=== PATIENT | male | born 1980 | race Caucasian/White ===

== ENCOUNTER 2020-03-14 20:37 | Inpatient (IN) | payer OTHER ==
[2020-03-14 22:50] VITALS: BMI 28.5
--- NOTE | 2020-03-14 23:09 | HP ---
CIWA Score Nausea/Vomitin Muscle Tremors: 3 Anxiety: 4-Mod. Anxious/Guarded Agitation: 3 Paroxysmal Sweats: 3 Orientation: 1-Uncertain about Date Tacttile Disturbances: 0-None Auditory Disturbances: 0-None Visual Disturbances: 0-None Headache: 3-Moderate CIWA-Ar Total Score: 19 - Admission Criteria OASAS Guidelines: Admission for Medically Managed Detox: Requires at least one of the followin. CIWA greater than 12 2. Seizures within the past 24 hours 3. Delirium tremens within the past 24 hours 4. Hallucinations within the past 24 hours 5. Acute intervention needed for co occurring medical disorder 6. Acute intervention needed for co occurring psychiatric disorder 7. Severe withdrawal that cannot be handled at a lower level of care (continued vomiting, continued diarrhea, abnormal vital signs) requiring intravenous medication and/or fluids 8. Admitting History and Physical - Smoking History Smoking history: Current every day smoker Aproximately how many cigarettes per day: 10 Admission ROS [facility] Chief Complaint: Seeking admission to detox from alcohol, on Methadone maintenance therapy with [facility]. Allergies/Adverse Reactions: Allergies Allergy/AdvReac Type Severity Reaction Status Date / Time No Known Allergies Allergy Unverified 09/08/12 08:02 History of Present Illness: 39 years old male with 18 years of alcohol dependence is seeking admission to detox. His last detox at [facility] was for the period 09/07/2012-09/12/2012 and he reports that he last detoxed was at [facility]. He drinks 2 pints of Vodka daily. He has medical history of hypertension, denies psych. history and suicidal ideation at this time. He is unemployed, homeless and he is on parole for burglary until September 2022. 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 He is on Methadone 190mg tablet oral daily with [facility]. LDM was today, 03/14/2020. Dose is yet to be verified by the nurse Exam Limitations: No Limitations - Ebola screening Have you traveled outside of the country in the last 21 days: No Have you had contact with anyone from an Ebola affected area: No Have you been sick,other than usual withdrawal symptoms: No Do you have a fever: No - Review of Systems Constitutional: Chills, Night Sweats, Changes in sleep EENT: reports: No Symptoms Reported Respiratory: reports: No Symptoms reported Cardiac: reports: No Symptoms Reported GI: reports: Diarrhea (x 1), Nausea, Poor Fluid Intake, Abdominal cramping : reports: No Symptoms Reported Musculoskeletal: reports: Back Pain, Muscle Pain Integumentary: reports: Dryness, Flushing Neuro: reports: Tremors Endocrine: reports: No Symptoms Reported Hematology: reports: No Symptoms Reported Psychiatric: reports: Mood/Affect Appropiate, Anxious Other Systems: Reviewed and Negative Patient History - Patient Medical History Hx Anemia: No Hx Asthma: No Hx Chronic Obstructive Pulmonary Disease (COPD): No Hx Cancer: No Hx Cardiac Disorders: No Hx Congestive Heart Failure: No Hx Hypertension: Yes Hx Hypercholesterolemia: No Hx Seizures: No Hx Diabetes: No Hx Gastrointestinal Disorders: No Hx Liver Disease: No Hx Genitourinary Disorders: No Hx Sexually Transmitted Disorders: No Hx Renal Disease (ESRD): No Hx Thyroid Disease: No Hx Human Immunodeficiency Virus (HIV): No (Negative 2020) Hx Hepatitis C: No Hx Depression: No Hx Suicide Attempt: No (Denies suicidal ideation at this time) Hx Bipolar Disorder: No Hx Schizophrenia: No - Patient Surgical History Past Surgical History: No - PPD History Previous Implant?: Yes Documented Results: Negative w/o proof Date: 09/09/12 PPD to be Administered?: Yes - Reproductive History Patient is a Female of Child Bearing Age (11 -55 yrs old): No (Male) - Smoking Cessation Smoking history: Current every day smoker Have you smoked in the past 12 months: Yes Aproximately how many cigarettes per day: 10 Hx Chewing Tobacco Use: No Initiated information on smoking cessation: Yes 'Breaking Loose' booklet given: 03/14/20 - Substance & Tx. History Hx Alcohol Use: Yes Hx Substance Use: Yes Substance Use Type: Alcohol, Cocaine, Prescribed (Methadone 190mg tablet oral daily with [facility]. dose to be confirmed by the nurse) Hx Substance Use Treatment: Yes ([facility]) - Substances abused Alcohol Substance route: Oral Frequency: Daily Amount used: 2 pints Vodka Age of first use: 21 Date of last use: 03/14/20 Admission Physical Exam [facility] - Vital Signs Vital Signs: Vital Signs - 24 hr 03/14/20 22:49 Temperature 98.4 F Pulse Rate 68 Respiratory 18 Rate Blood Pressure 147/93 - Physical General Appearance: Yes: Moderate Distress, Tremorous, Sweating, Anxious HEENTM: Yes: Within Normal Limits Respiratory: Yes: Lungs Clear, Normal Breath Sounds, No Respiratory Distress Neck: Yes: Within Normal Limits Breast: Yes: Breast Exam Deferred Cardiology: Yes: Within Normal Limits Abdominal: Yes: Normal Bowel Sounds Genitourinary: Yes: Within Normal Limits Back: Yes: Normal Inspection Musculoskeletal: Yes: Within Normal Limits Extremities: Yes: Tremors Neurological: Yes: Within Normal Limits Integumentary: Yes: Warm Lymphatic: Yes: Within Normal Limits - Diagnostic (1) Alcohol dependence with withdrawal, uncomplicated Current Visit: Yes Status: Acute (2) Hypertension Current Visit: Yes Status: Chronic Qualifiers: Hypertension type: essential hypertension Qualified Code(s): I10 - Esse ntial (primary) hypertension (3) Cocaine dependence Current Visit: Yes Status: Chronic Qualifiers: Substance use status: in withdrawal Qualified Code(s): F14.23 - Cocaine dependence with withdrawal (4) Methadone maintenance therapy patient Current Visit: Yes Status: Chronic (5) Nicotine dependence Current Visit: Yes Status: Acute Qualifiers: Nicotine product type: cigarettes Substance use status: in withdrawal Qualified Code(s): F17.213 - Nicotine dependence, cigarettes, with withdrawal Cleared for Admission S - Detox or Rehab [facility] Level of Care: Medically Managed Detox Regimen/Protocol: Librium Claeared for Rehab Admission: No Breathalyzer - Breathalyzer Breathalyzer: 0 Urine Drug Screen - Test Device Lot number: [id number] Expiration date: 11/02/21 - Control Is test valid?: Yes - Results Drug screen NEGATIVE: No Urine drug screen results: THC-Marijuana, FEN-Fentanyl, MOP-Opiates, MTD- Methadone Inpatient Rehab Admission - Rehab Decision to Admit Inpatient rehab admission?: No
[2020-03-14] MEDS ORDERED: NICOTINE POLACRILEX 2 MG GUM BUC PRN (23:31)
[2020-03-14] MEDS ORDERED: ONDANSETRON *ODT* 4 MG TABLET SL ONE (23:31)
[2020-03-14] MEDS ORDERED: MAG HYDROX/AL HYDROX/SIMETH 30 ML UNIT-DOSE CUP PO PRN (23:31)
[2020-03-14] MEDS ORDERED: IBUPROFEN 400 MG TABLET (FP) PO PRN (23:31)
[2020-03-14] MEDS ORDERED: BISMUTH SUBSALICYLATE 524 MG/30 ML UD PO PRN (23:31)
[2020-03-14] MEDS ORDERED: MENTHOL/PHENOL 1 EACH UD MM PRN (23:31)
[2020-03-14] MEDS ORDERED: MAGNESIUM CITRATE 300 ML BOTTLE PO PRN (23:31)
[2020-03-14] MEDS ORDERED: METHOCARBAMOL 500 MG TABLET PO PRN (23:31)
[2020-03-14] MEDS ORDERED: ACETAMINOPHEN 325 MG TABLET (FP) PO PRN ×2 (23:31)
[2020-03-14] MEDS ORDERED: MAGNESIUM HYDROX 2400MG/30ML ORAL SUSPENSION 30 ML CUP PO PRN (23:31)
[2020-03-14] MEDS ORDERED: chlordiazePOXIDE HCL 25 MG CAPSULE PO PRN (23:36)
[2020-03-15] MEDS: chlordiazePOXIDE HCL 25 MG CAPSULE PO SCH ×5 (02:34→22:42)
--- NOTE | 2020-03-15 09:24 | EKG ---
Test Reason : Blood Pressure : / mmHG Vent. Rate : 070 BPM Atrial Rate : 070 BPM P-R Int : 130 ms QRS Dur : 096 ms QT Int : 408 ms P-R-T Axes : 012 071 059 degrees QTc Int : 440 ms NORMAL SINUS RHYTHM NORMAL ECG NO PREVIOUS ECGS AVAILABLE Confirmed by Thiago Dillon MD ([id number]) on 03/15/2020 9:23:36 AM Referred By: ABIGAL Confirmed By:Thiago Dillon MD
[2020-03-15] MEDS ORDERED: METHADONE HCL 10 MG TABLET PO ONE ×2 (09:54→13:06)
--- NOTE | 2020-03-15 10:03 | PN ---
S CIWA - CIWA Score Nausea/Vomitin-No Nausea/No Vomiting Muscle Tremors: 3 Anxiety: 3 Agitation: 3 Paroxysmal Sweats: 3 Orientation: 0-Oriented Tacttile Disturbances: 0-None Auditory Disturbances: 0-None Visual Disturbances: 0-None Headache: 0-None Present CIWA-Ar Total Score: 12 [facility] Progress Note (SOAP) Subjective: sweats tired shakes irritable Objective: 03/15/20 10:19 Vital Signs - 24 hr 03/15/20 03/15/20 03/15/20 12:55 17:25 21:12 Temperature 97.3 F L 98.1 F 97.1 F L Pulse Rate 74 70 64 Respiratory 18 18 16 Rate Blood Pressure 154/88 141/74 133/74 O2 Sat by Pulse 97 96 Oximetry (%) 03/16/20 05:32 Temperature 96.8 F L Pulse Rate 64 Respiratory 18 Rate Blood Pressure 141/92 O2 Sat by Pulse 97 Oximetry (%) Laboratory Tests 03/14/20 03/15/20 03/15/20 08:30 08:30 08:30 WBC 4.8 RBC 4.36 Hgb 13.6 Hct 41.0 MCV 93.9 MCH 31.3 MCHC 33.3 RDW 15.2 D Plt Count 303 D MPV 8.0 Sodium Potassium Chloride Carbon Dioxide Anion Gap BUN Creatinine Est GFR (CKD-EPI)AfAm Est GFR (CKD-EPI)NonAf Random Glucose Calcium Total Bilirubin AST ALT Alkaline Phosphatase Total Protein Albumin Syphilis Serology Non-reactive COVID-19 ([facility]) Not detected 03/15/20 08:30 WBC RBC Hgb Hct MCV MCH MCHC RDW Plt Count MPV Sodium 144 Potassium 4.0 Chloride 107 Carbon Dioxide 31 Anion Gap 6 L BUN 18.6 H Creatinine 1.0 Est GFR (CKD-EPI)AfAm 109.40 Est GFR (CKD-EPI)NonAf 94.39 Random Glucose 119 H Calcium 8.6 Total Bilirubin 0.4 AST 20 ALT 26 Alkaline Phosphatase 57 Total Protein 5.7 L Albumin 3.0 L Syphilis Serology COVID-19 ([facility]) aaox3 ambulating no acute distress Assessment: 03/16/20 10:20 withdrawals Plan: continue detox
[2020-03-15] MEDS ORDERED: METHADONE HCL 10 MG TABLET ONE ×2 (10:13→13:12)
[2020-03-15] MEDS ORDERED: METHADONE HCL 40 MG DISPERSABLE TABLET ONE ×2 (10:13→13:13)
[2020-03-15] MEDS ORDERED: METHADONE 80 MG, METHADONE 10 MG PO ONE ×2 (10:15→13:30)
[2020-03-15] MEDS: NICOTINE 14 MG/24 HOURS TOPICAL PATCH TD SCH (12:14)
[2020-03-15] MEDS: PRENATAL VITAMINS W/ FOLIC ACID TABLET (FP) PO SCH (12:14)
[2020-03-15 12:24] LABS: BILIRUBIN,TOTAL 0.4 mg/dL (0.2-1); BLOOD UREA NITROGEN 18.6 mg/dL (7-18); CALCIUM 8.6 mg/dL (8.5-10.1); HEMOGLOBIN 13.6 GM/dL (11.7-16.9); MCH 31.3 pg (25.7-33.7); MCHC 33.3 g/dl (32.0-35.9); MEAN CELL VOLUME 93.9 fl (80-96); PLATELET COUNT 303 K/MM3 (134-434); RBC 4.36 M/mm3 (4.00-5.60); RDW 15.2 % (11.9-15.9); TOT PROT 5.7 g/dl (6.4-8.2); WHITE BLOOD COUNT 4.8 K/mm3 (4.0-10.0)
[2020-03-15] MEDS: THIAMINE HCL 100 MG TABLET (FP) PO SCH (22:43)
[2020-03-15] MEDS: MELATONIN 5 MG TABLETS PO SCH (23:00)
[2020-03-16] MEDS ORDERED: METHADONE HCL 10 MG TABLET ONE (04:32)
[2020-03-16] MEDS ORDERED: METHADONE HCL 40 MG DISPERSABLE TABLET ONE (04:32)
[2020-03-16] MEDS ORDERED: METHADONE HCL 40 MG DISPERSABLE TABLET PO SCH (06:00)
[2020-03-16] MEDS: chlordiazePOXIDE HCL 25 MG CAPSULE PO SCH ×4 (06:55→23:02)
[2020-03-16] MEDS: METHADONE 80 MG, METHADONE 10 MG PO SCH (06:55)
--- NOTE | 2020-03-16 10:22 | PN ---
[facility] CIWA - CIWA Score Nausea/Vomitin-No Nausea/No Vomiting Muscle Tremors: 2 Anxiety: 2 Agitation: 1-Slight > Activity Paroxysmal Sweats: 1-Minimal Palms Moist Orientation: 0-Oriented Tacttile Disturbances: 0-None Auditory Disturbances: 0-None Visual Disturbances: 0-None Headache: 0-None Present CIWA-Ar Total Score: 6 [facility] Progress Note (SOAP) Subjective: sleepy sweats Objective: 03/16/20 10:21 Vital Signs Temperature 96.8 F L 03/16/20 05:32 Pulse Rate 64 03/16/20 05:32 Respiratory Rate 18 03/16/20 05:32 Blood Pressure 141/92 03/16/20 05:32 O2 Sat by Pulse Oximetry (%) 97 03/16/20 05:32 Laboratory Tests 03/14/20 03/15/20 03/15/20 08:30 08:30 08:30 WBC 4.8 RBC 4.36 Hgb 13.6 Hct 41.0 MCV 93.9 MCH 31.3 MCHC 33.3 RDW 15.2 D Plt Count 303 D MPV 8.0 Sodium Potassium Chloride Carbon Dioxide Anion Gap BUN Creatinine Est GFR (CKD-EPI)AfAm Est GFR (CKD-EPI)NonAf Random Glucose Calcium Total Bilirubin AST ALT Alkaline Phosphatase Total Protein Albumin Syphilis Serology Non-reactive COVID-19 ([facility]) Not detected 03/15/20 08:30 WBC RBC Hgb Hct MCV MCH MCHC RDW Plt Count MPV Sodium 144 Potassium 4.0 Chloride 107 Carbon Dioxide 31 Anion Gap 6 L BUN 18.6 H Creatinine 1.0 Est GFR (CKD-EPI)AfAm 109.40 Est GFR (CKD-EPI)NonAf 94.39 Random Glucose 119 H Calcium 8.6 Total Bilirubin 0.4 AST 20 ALT 26 Alkaline Phosphatase 57 Total Protein 5.7 L Albumin 3.0 L Syphilis Serology COVID-19 ([facility]) aaox3 lying in bed no acute distress elevated BUN; encouraged water intake Assessment: 03/16/20 10:21 withdrawals Plan: continue detox increase fluids
[2020-03-16] MEDS: PRENATAL VITAMINS W/ FOLIC ACID TABLET (FP) PO SCH (12:34)
[2020-03-16] MEDS: NICOTINE 14 MG/24 HOURS TOPICAL PATCH TD SCH (12:34)
[2020-03-16] MEDS: THIAMINE HCL 100 MG TABLET (FP) PO SCH (23:03)
[2020-03-16] MEDS: MELATONIN 5 MG TABLETS PO SCH (23:03)
[2020-03-17] MEDS ORDERED: chlordiazePOXIDE HCL 10 MG CAPSULE PO PRN
[2020-03-17] MEDS ORDERED: METHADONE HCL 10 MG TABLET ONE (03:50)
[2020-03-17] MEDS ORDERED: METHADONE HCL 40 MG DISPERSABLE TABLET ONE (03:50)
[2020-03-17] MEDS: chlordiazePOXIDE HCL 10 MG CAPSULE PO SCH ×2 (07:56→10:48)
[2020-03-17] MEDS: PRENATAL VITAMINS W/ FOLIC ACID TABLET (FP) PO SCH (10:46)
[2020-03-17] MEDS: NICOTINE 14 MG/24 HOURS TOPICAL PATCH TD SCH (10:47)
[2020-03-17] MEDS: METHADONE 80 MG, METHADONE 10 MG PO SCH (10:47)
--- NOTE | 2020-03-17 11:21 | DS ---
[facility] Detox Discharge Summary Admission Date: 03/15/20 Discharge Date: 03/17/20 - History Present History: Alcohol Dependence, Opioid Dependence Pertinent Past History: Pt states he wants to leave today. Says he does not need librium- feeling fine with the detox meds he has had so far. PE- alert and oriented, no evidence of withdrawal pt states will follow up with [facility] where he gets his methadone and is in an outpatient program Vital Signs - 24 hr 03/16/20 03/16/20 03/17/20 12:58 17:03 06:08 Temperature 97.1 F L 97.3 F L 97.3 F L Pulse Rate 68 60 61 Respiratory 18 18 18 Rate Blood Pressure 143/79 113/72 142/91 O2 Sat by Pulse 96 96 Oximetry (%) Laboratory Tests 03/14/20 03/15/20 03/15/20 08:30 08:30 08:30 WBC 4.8 RBC 4.36 Hgb 13.6 Hct 41.0 MCV 93.9 MCH 31.3 MCHC 33.3 RDW 15.2 D Plt Count 303 D MPV 8.0 Sodium Potassium Chloride Carbon Dioxide Anion Gap BUN Creatinine Est GFR (CKD-EPI)AfAm Est GFR (CKD-EPI)NonAf Random Glucose Calcium Total Bilirubin AST ALT Alkaline Phosphatase Total Protein Albumin Syphilis Serology Non-reactive COVID-19 ([facility]) Not detected 03/15/20 08:30 WBC RBC Hgb Hct MCV MCH MCHC RDW Plt Count MPV Sodium 144 Potassium 4.0 Chloride 107 Carbon Dioxide 31 Anion Gap 6 L BUN 18.6 H Creatinine 1.0 Est GFR (CKD-EPI)AfAm 109.40 Est GFR (CKD-EPI)NonAf 94.39 Random Glucose 119 H Calcium 8.6 Total Bilirubin 0.4 AST 20 ALT 26 Alkaline Phosphatase 57 Total Protein 5.7 L Albumin 3.0 L Syphilis Serology COVID-19 ([facility]) - Physical Exam Results Vital Signs: Vital Signs Temperature 97.3 F L 03/17/20 06:08 Pulse Rate 61 03/17/20 06:08 Respiratory Rate 18 03/17/20 06:08 Blood Pressure 142/91 03/17/20 06:08 O2 Sat by Pulse Oximetry (%) 96 03/17/20 06:08 - Treatment Hospital Course: Detox Protocol Followed, Detoxed Safely, Responded well - Medication Discharge Medications: Ambulatory Orders NK [No Known Home Medication] 03/15/20
[2020-03-17 12:13] VITALS: BP 154/90; PULSE 65; TEMP 98
[2020-03-18] MEDS ORDERED: chlordiazePOXIDE HCL 10 MG CAPSULE PO SCH (05:00)
[2020-03-19] MEDS ORDERED: chlordiazePOXIDE HCL 10 MG CAPSULE PO ONE (05:00)
== END 2020-03-17 12:23 | disposition home or self-care (01) | DRG 773 ==
LOC: YASAS 20:37 → Y6N 03-15 00:02
PROVIDERS: ADMIT Allergy & Immunology; ATTEND Allergy & Immunology
PROC: HZ2ZZZZ Detoxification Services for Substance Abuse Treatment (ICD-10-PCS; principal; 2020-03-15)
DX: F10.230 Alcohol dependence with withdrawal, uncomplicated (principal); F11.20 Opioid dependence, uncomplicated; F14.20 Cocaine dependence, uncomplicated; F17.213 Nicotine dependence, cigarettes, with withdrawal; I10 Essential (primary) hypertension
CPT/HCPCS: 36415; 80053; 85027; 86780; 93005; 93010; Q0162; U0003

== ENCOUNTER 2021-05-31 14:44 | Inpatient (IN) | payer OTHER ==
[2021-05-31] MEDS ORDERED: IBUPROFEN 400 MG TABLET (FP) PO PRN (15:44)
[2021-05-31] MEDS ORDERED: MAGNESIUM HYDROX 2400MG/30ML ORAL SUSPENSION 30 ML CUP PO PRN (15:44)
[2021-05-31] MEDS ORDERED: MAG HYDROX/AL HYDROX/SIMETH 30 ML UNIT-DOSE CUP PO PRN (15:44)
[2021-05-31] MEDS ORDERED: diazePAM 5 MG TABLET PO PRN (15:44)
[2021-05-31] MEDS ORDERED: ACETAMINOPHEN 325 MG TABLET (FP) PO PRN ×2 (15:44)
[2021-05-31] MEDS ORDERED: MAGNESIUM CITRATE 300 ML BOTTLE PO PRN (15:44)
[2021-05-31] MEDS ORDERED: MENTHOL/PHENOL 1 EACH UD MM PRN (15:44)
[2021-05-31] MEDS ORDERED: METHOCARBAMOL 500 MG TABLET PO PRN (15:44)
[2021-05-31] MEDS ORDERED: ONDANSETRON *ODT* 4 MG TABLET SL PRN (15:44)
[2021-05-31] MEDS ORDERED: BISMUTH SUBSALICYLATE 524 MG/30 ML PO PRN (15:44)
[2021-05-31 16:59] VITALS: BMI 29.7
[2021-05-31] MEDS: PRENATAL VITAMINS W/ FOLIC ACID TABLET (FP) PO SCH (19:34)
[2021-05-31] MEDS: hydrOXYzine PAMOATE 25 MG CAPSULE (FP) PO SCH ×2 (19:34→22:55)
[2021-05-31] MEDS: NICOTINE 10 MG CARTRIDGE (INHALER) IH PRN (19:34)
[2021-05-31] MEDS: diazePAM 5 MG TABLET PO SCH ×2 (19:34→22:55)
[2021-05-31] MEDS: NICOTINE 14 MG/24 HOURS TOPICAL PATCH TD SCH (19:37)
[2021-05-31] MEDS: THIAMINE HCL 100 MG TABLET (FP) PO SCH (22:55)
[2021-05-31] MEDS: MELATONIN 5 MG TABLETS PO SCH (22:55)
[2021-06-01] MEDS: diazePAM 5 MG TABLET PO SCH ×4 (08:39→22:26)
[2021-06-01] MEDS: hydrOXYzine PAMOATE 25 MG CAPSULE (FP) PO SCH ×5 (08:39→22:26)
[2021-06-01 10:40] LABS: HEMATOCRIT 37.7 % (35.4-49); HEMOGLOBIN 12.9 GM/dL (11.7-16.9); MCH 31.2 pg (25.7-33.7); MCHC 34.3 g/dl (32.0-35.9); MEAN PLT VOLUME 8.2 fl (7.5-11.1); PLATELET COUNT 248 10^3/uL (134-434); RBC 4.15 M/mm3 (4.00-5.60); RDW 14.7 % (11.9-15.9); WHITE BLOOD COUNT 5.7 K/mm3 (4.0-10.0)
[2021-06-01 11:10] LABS: CALCIUM 8.4 mg/dL (8.5-10.1)
[2021-06-01 11:14] LABS: CREATININE 0.8 mg/dL (0.55-1.3)
[2021-06-01 11:15] LABS: BILIRUBIN,TOTAL 0.5 mg/dL (0.2-1); TOT PROT 5.7 g/dl (6.4-8.2)
[2021-06-01 11:19] LABS: BLOOD UREA NITROGEN 18.2 mg/dL (7-18)
[2021-06-01] MEDS: NICOTINE 14 MG/24 HOURS TOPICAL PATCH TD SCH (11:25)
[2021-06-01] MEDS: PRENATAL VITAMINS W/ FOLIC ACID TABLET (FP) PO SCH (11:26)
[2021-06-01] MEDS ORDERED: ALBUTEROL SO4 HFA INHALER IH PRN (11:34)
[2021-06-01] MEDS: methaDONE HCL 40 MG DISPERSABLE TABLET PO SCH (12:08)
[2021-06-01 13:09] LABS: HIV INTERPRETATION NEGATIVE (NEGATIVE)
[2021-06-01] MEDS: MELATONIN 5 MG TABLETS PO SCH (22:27)
[2021-06-01] MEDS: THIAMINE HCL 100 MG TABLET (FP) PO SCH (22:28)
[2021-06-02] MEDS: diazePAM 5 MG TABLET PO SCH ×3 (05:51→21:06)
[2021-06-02] MEDS: hydrOXYzine PAMOATE 25 MG CAPSULE (FP) PO SCH ×5 (05:51→21:05)
[2021-06-02] MEDS: methaDONE HCL 40 MG DISPERSABLE TABLET PO SCH (05:52)
[2021-06-02] MEDS: PRENATAL VITAMINS W/ FOLIC ACID TABLET (FP) PO SCH (10:38)
[2021-06-02] MEDS: NICOTINE 14 MG/24 HOURS TOPICAL PATCH TD SCH (10:38)
[2021-06-02] MEDS: MELATONIN 5 MG TABLETS PO SCH (21:05)
[2021-06-02] MEDS: THIAMINE HCL 100 MG TABLET (FP) PO SCH (21:05)
[2021-06-03] MEDS: methaDONE HCL 40 MG DISPERSABLE TABLET PO SCH (05:55)
[2021-06-03] MEDS: diazePAM 5 MG TABLET PO SCH ×2 (05:55→18:19)
[2021-06-03] MEDS: hydrOXYzine PAMOATE 25 MG CAPSULE (FP) PO SCH ×5 (05:55→23:08)
[2021-06-03] MEDS: NICOTINE 14 MG/24 HOURS TOPICAL PATCH TD SCH (10:31)
[2021-06-03] MEDS: PRENATAL VITAMINS W/ FOLIC ACID TABLET (FP) PO SCH (10:31)
[2021-06-03] MEDS: NICOTINE 10 MG CARTRIDGE (INHALER) IH PRN (10:41)
[2021-06-03] MEDS: MELATONIN 5 MG TABLETS PO SCH (23:08)
[2021-06-03] MEDS: THIAMINE HCL 100 MG TABLET (FP) PO SCH (23:08)
[2021-06-04] MEDS ORDERED: diazePAM 5 MG TABLET PO ONE (06:00)
[2021-06-04] MEDS: methaDONE HCL 40 MG DISPERSABLE TABLET PO SCH (06:25)
[2021-06-04] MEDS ORDERED: MASKS NR ONE (06:25)
[2021-06-04] MEDS: hydrOXYzine PAMOATE 25 MG CAPSULE (FP) PO SCH ×2 (06:25→10:11)
[2021-06-04] MEDS: PRENATAL VITAMINS W/ FOLIC ACID TABLET (FP) PO SCH (10:11)
[2021-06-04] MEDS: NICOTINE 14 MG/24 HOURS TOPICAL PATCH TD SCH (10:12)
[2021-06-04 12:37] VITALS: BP 129/79; PULSE 67; TEMP 97.3
[2021-06-05] MEDS ORDERED: diazePAM 5 MG TABLET PO ONE (06:00)
== END 2021-06-04 12:59 | disposition other institution (70) | DRG 773 ==
LOC: YASAS 14:44 → Y3N 17:35
PROVIDERS: ADMIT Allergy & Immunology; ATTEND Allergy & Immunology
PROC: HZ2ZZZZ Detoxification Services for Substance Abuse Treatment (ICD-10-PCS; principal; 2021-05-31)
DX: F10.230 Alcohol dependence with withdrawal, uncomplicated (principal); F11.20 Opioid dependence, uncomplicated; F14.20 Cocaine dependence, uncomplicated; F13.10 Sedative, hypnotic or anxiolytic abuse, uncomplicated; F17.210 Nicotine dependence, cigarettes, uncomplicated; E46 Unspecified protein-calorie malnutrition; I10 Essential (primary) hypertension; J45.909 Unspecified asthma, uncomplicated; Z68.29 Body mass index [BMI] 29.0-29.9, adult; Z88.2 Allergy status to sulfonamides; Z91.013 Allergy to seafood; Z59.00 Homelessness unspecified
CPT/HCPCS: 36415; 80053; 85027; 86480; 86780; 87389; C9803; U0003; U0005

== ENCOUNTER 2021-06-04 13:07 | Inpatient (IN) | payer OTHER ==
[2021-06-04] MEDS ORDERED: ACETAMINOPHEN 325 MG TABLET (FP) PO PRN (13:43)
[2021-06-04] MEDS ORDERED: MAGNESIUM CITRATE 300 ML BOTTLE PO PRN (13:43)
[2021-06-04] MEDS ORDERED: MAGNESIUM HYDROX 2400MG/30ML ORAL SUSPENSION 30 ML CUP PO PRN (13:43)
[2021-06-04] MEDS ORDERED: IBUPROFEN 400 MG TABLET (FP) PO PRN (13:43)
[2021-06-04] MEDS ORDERED: MAG HYDROX/AL HYDROX/SIMETH 30 ML UNIT-DOSE CUP PO PRN (13:43)
[2021-06-04] MEDS ORDERED: MENTHOL/PHENOL 1 EACH UD MM PRN (13:43)
[2021-06-04] MEDS ORDERED: LOPERAMIDE HCL 2 MG CAPSULE PO PRN (13:43)
[2021-06-04] MEDS ORDERED: ALBUTEROL SO4 HFA INHALER IH PRN (13:47)
[2021-06-04] MEDS ORDERED: PT OWN MED DRAWER 7, Y5N ONE (15:52)
[2021-06-04] MEDS ORDERED: TUBERCULIN PPD 5 TU/0.1ML VIAL ID ONE (18:09)
[2021-06-04] MEDS: THIAMINE HCL 100 MG TABLET (FP) PO SCH (21:49)
[2021-06-04] MEDS ORDERED: MELATONIN 5 MG TABLETS PO SCH (22:00)
[2021-06-05] MEDS: methaDONE HCL 40 MG DISPERSABLE TABLET PO SCH (06:08)
[2021-06-05] MEDS: TESTOSTERONE TD SCH (06:09)
[2021-06-05] MEDS: PRENATAL VITAMINS W/ FOLIC ACID TABLET (FP) PO SCH (10:05)
[2021-06-05] MEDS: NICOTINE 14 MG/24 HOURS TOPICAL PATCH TD SCH (10:05)
[2021-06-05] MEDS ORDERED: diphenhydrAMINE HCL 50 MG CAPSULE PO PRN (22:00)
[2021-06-05] MEDS: THIAMINE HCL 100 MG TABLET (FP) PO SCH (22:03)
[2021-06-06] MEDS: NAPROXEN 500 MG TABLET PO PRN ×2 (06:18→17:14)
[2021-06-06] MEDS ORDERED: PT OWN MED DRAWER 7, Y5N ONE (06:18)
[2021-06-06] MEDS: TESTOSTERONE TD SCH (06:19)
[2021-06-06] MEDS: methaDONE HCL 40 MG DISPERSABLE TABLET PO SCH (06:19)
[2021-06-06] MEDS: NICOTINE 14 MG/24 HOURS TOPICAL PATCH TD SCH (10:01)
[2021-06-06] MEDS: PRENATAL VITAMINS W/ FOLIC ACID TABLET (FP) PO SCH ×2 (10:02→10:17)
[2021-06-06] MEDS: NICOTINE 10 MG CARTRIDGE (INHALER) IH PRN (10:16)
[2021-06-06] MEDS: THIAMINE HCL 100 MG TABLET (FP) PO SCH (21:42)
[2021-06-07] MEDS ORDERED: PT OWN MED DRAWER 7, Y5N ONE (06:15)
[2021-06-07] MEDS: methaDONE HCL 40 MG DISPERSABLE TABLET PO SCH (06:16)
[2021-06-07] MEDS: TESTOSTERONE TD SCH (06:17)
[2021-06-07] MEDS: NAPROXEN 500 MG TABLET PO PRN (06:17)
[2021-06-07] MEDS: hydrOXYzine PAMOATE 25 MG CAPSULE (FP) PO PRN ×3 (06:18→14:54)
[2021-06-07] MEDS: PRENATAL VITAMINS W/ FOLIC ACID TABLET (FP) PO SCH (09:40)
[2021-06-07] MEDS: HYDROCORTISONE 1% TOPICAL OINT 30 GM TUBE TP SCH ×2 (09:41→21:38)
[2021-06-07] MEDS: NICOTINE 14 MG/24 HOURS TOPICAL PATCH TD SCH (09:41)
[2021-06-07] MEDS: NICOTINE 10 MG CARTRIDGE (INHALER) IH PRN (10:04)
[2021-06-07] MEDS: THIAMINE HCL 100 MG TABLET (FP) PO SCH (21:38)
[2021-06-08] MEDS: methaDONE HCL 40 MG DISPERSABLE TABLET PO SCH (06:12)
[2021-06-08] MEDS: TESTOSTERONE TD SCH (06:12)
[2021-06-08] MEDS: hydrOXYzine PAMOATE 25 MG CAPSULE (FP) PO PRN (06:13)
[2021-06-08] MEDS: NICOTINE 10 MG CARTRIDGE (INHALER) IH PRN (06:15)
[2021-06-08] MEDS ORDERED: PT OWN MED DRAWER 7, Y5N ONE (08:38)
[2021-06-08] MEDS: HYDROCORTISONE 1% TOPICAL OINT 30 GM TUBE TP SCH ×2 (09:49→21:52)
[2021-06-08] MEDS: NICOTINE 14 MG/24 HOURS TOPICAL PATCH TD SCH (09:49)
[2021-06-08] MEDS: PRENATAL VITAMINS W/ FOLIC ACID TABLET (FP) PO SCH (09:49)
[2021-06-08] MEDS: THIAMINE HCL 100 MG TABLET (FP) PO SCH (21:52)
[2021-06-09] MEDS: NICOTINE 10 MG CARTRIDGE (INHALER) IH PRN ×2 (05:59→10:43)
[2021-06-09] MEDS: methaDONE HCL 40 MG DISPERSABLE TABLET PO SCH (06:00)
[2021-06-09] MEDS: TESTOSTERONE TD SCH (06:00)
[2021-06-09] MEDS: hydrOXYzine PAMOATE 25 MG CAPSULE (FP) PO PRN ×2 (06:01→10:43)
[2021-06-09] MEDS: PRENATAL VITAMINS W/ FOLIC ACID TABLET (FP) PO SCH (09:02)
[2021-06-09] MEDS: NICOTINE 14 MG/24 HOURS TOPICAL PATCH TD SCH (09:03)
[2021-06-09] MEDS: HYDROCORTISONE 1% TOPICAL OINT 30 GM TUBE TP SCH ×2 (09:30→21:30)
[2021-06-09] MEDS: THIAMINE HCL 100 MG TABLET (FP) PO SCH (21:30)
[2021-06-10] MEDS: methaDONE HCL 40 MG DISPERSABLE TABLET PO SCH (05:55)
[2021-06-10] MEDS: NICOTINE 10 MG CARTRIDGE (INHALER) IH PRN ×2 (05:56→10:03)
[2021-06-10] MEDS: hydrOXYzine PAMOATE 25 MG CAPSULE (FP) PO PRN ×3 (05:58→16:40)
[2021-06-10] MEDS: TESTOSTERONE TD SCH (06:05)
[2021-06-10] MEDS: PRENATAL VITAMINS W/ FOLIC ACID TABLET (FP) PO SCH (09:51)
[2021-06-10] MEDS: HYDROCORTISONE 1% TOPICAL OINT 30 GM TUBE TP SCH ×2 (09:52→23:08)
[2021-06-10] MEDS: NICOTINE 14 MG/24 HOURS TOPICAL PATCH TD SCH (09:52)
[2021-06-10] MEDS ORDERED: PT OWN MED DRAWER 7, Y5N ONE (20:31)
[2021-06-10] MEDS: THIAMINE HCL 100 MG TABLET (FP) PO SCH (23:08)
[2021-06-11] MEDS: NICOTINE 10 MG CARTRIDGE (INHALER) IH PRN ×2 (06:14→11:52)
[2021-06-11] MEDS: hydrOXYzine PAMOATE 25 MG CAPSULE (FP) PO PRN ×2 (06:14→11:51)
[2021-06-11] MEDS: TESTOSTERONE TD SCH (06:15)
[2021-06-11] MEDS: methaDONE HCL 40 MG DISPERSABLE TABLET PO SCH (06:15)
[2021-06-11] MEDS: PRENATAL VITAMINS W/ FOLIC ACID TABLET (FP) PO SCH (09:46)
[2021-06-11] MEDS: NICOTINE 14 MG/24 HOURS TOPICAL PATCH TD SCH (09:47)
[2021-06-11] MEDS: HYDROCORTISONE 1% TOPICAL OINT 30 GM TUBE TP SCH ×2 (09:47→21:54)
[2021-06-11] MEDS: THIAMINE HCL 100 MG TABLET (FP) PO SCH (21:54)
[2021-06-12] MEDS ORDERED: diphenhydrAMINE HCL 25 MG CAPSULE (FP) PO ONE (02:02)
[2021-06-12] MEDS: methaDONE HCL 40 MG DISPERSABLE TABLET PO SCH (06:11)
[2021-06-12] MEDS: TESTOSTERONE TD SCH (06:11)
[2021-06-12] MEDS: hydrOXYzine PAMOATE 25 MG CAPSULE (FP) PO PRN ×2 (06:13→10:35)
[2021-06-12] MEDS: NICOTINE 10 MG CARTRIDGE (INHALER) IH PRN ×2 (06:13→10:39)
[2021-06-12] MEDS ORDERED: PT OWN MED DRAWER 7, Y5N ONE (08:59)
[2021-06-12] MEDS: PRENATAL VITAMINS W/ FOLIC ACID TABLET (FP) PO SCH (10:35)
[2021-06-12] MEDS: NICOTINE 14 MG/24 HOURS TOPICAL PATCH TD SCH (10:35)
[2021-06-12] MEDS: HYDROCORTISONE 1% TOPICAL OINT 30 GM TUBE TP SCH ×2 (10:37→21:44)
[2021-06-12] MEDS: THIAMINE HCL 100 MG TABLET (FP) PO SCH (21:44)
[2021-06-13] MEDS: TESTOSTERONE TD SCH (06:04)
[2021-06-13] MEDS: NICOTINE 10 MG CARTRIDGE (INHALER) IH PRN ×2 (06:05→10:07)
[2021-06-13] MEDS: methaDONE HCL 40 MG DISPERSABLE TABLET PO SCH (06:05)
[2021-06-13] MEDS: hydrOXYzine PAMOATE 25 MG CAPSULE (FP) PO PRN ×2 (06:05→10:07)
[2021-06-13] MEDS: PRENATAL VITAMINS W/ FOLIC ACID TABLET (FP) PO SCH (09:34)
[2021-06-13] MEDS: NICOTINE 14 MG/24 HOURS TOPICAL PATCH TD SCH (09:34)
[2021-06-13] MEDS: HYDROCORTISONE 1% TOPICAL OINT 30 GM TUBE TP SCH ×2 (10:01→22:20)
[2021-06-13] MEDS ORDERED: PT OWN MED DRAWER 7, Y5N ONE (10:05)
[2021-06-13] MEDS: THIAMINE HCL 100 MG TABLET (FP) PO SCH (22:21)
[2021-06-14] MEDS: methaDONE HCL 40 MG DISPERSABLE TABLET PO SCH (06:16)
[2021-06-14] MEDS: TESTOSTERONE TD SCH (06:16)
[2021-06-14] MEDS: NICOTINE 10 MG CARTRIDGE (INHALER) IH PRN (06:18)
[2021-06-14] MEDS ORDERED: PT OWN MED DRAWER 7, Y5N ONE (08:32)
[2021-06-14] MEDS: NICOTINE 14 MG/24 HOURS TOPICAL PATCH TD SCH (09:34)
[2021-06-14] MEDS: HYDROCORTISONE 1% TOPICAL OINT 30 GM TUBE TP SCH ×2 (09:34→21:28)
[2021-06-14] MEDS: PRENATAL VITAMINS W/ FOLIC ACID TABLET (FP) PO SCH (09:35)
[2021-06-14] MEDS: BACITRACIN 0.9 GM PACKET TP SCH (13:37)
[2021-06-14] MEDS: THIAMINE HCL 100 MG TABLET (FP) PO SCH (21:28)
[2021-06-15] MEDS: methaDONE HCL 40 MG DISPERSABLE TABLET PO SCH (06:14)
[2021-06-15] MEDS: NICOTINE 10 MG CARTRIDGE (INHALER) IH PRN (06:15)
[2021-06-15] MEDS: TESTOSTERONE TD SCH (06:15)
[2021-06-15] MEDS ORDERED: PT OWN MED DRAWER 7, Y5N ONE (08:38)
[2021-06-15] MEDS: NICOTINE 14 MG/24 HOURS TOPICAL PATCH TD SCH (09:53)
[2021-06-15] MEDS: HYDROCORTISONE 1% TOPICAL OINT 30 GM TUBE TP SCH ×2 (09:54→22:43)
[2021-06-15] MEDS: hydrOXYzine PAMOATE 25 MG CAPSULE (FP) PO PRN (09:54)
[2021-06-15] MEDS: PRENATAL VITAMINS W/ FOLIC ACID TABLET (FP) PO SCH (09:54)
[2021-06-15] MEDS: BACITRACIN 0.9 GM PACKET TP SCH (09:54)
[2021-06-15] MEDS: THIAMINE HCL 100 MG TABLET (FP) PO SCH (22:43)
[2021-06-16] MEDS: methaDONE HCL 40 MG DISPERSABLE TABLET PO SCH (06:11)
[2021-06-16] MEDS: TESTOSTERONE TD SCH (06:12)
[2021-06-16] MEDS: hydrOXYzine PAMOATE 25 MG CAPSULE (FP) PO PRN ×2 (06:13→09:45)
[2021-06-16] MEDS: NICOTINE 10 MG CARTRIDGE (INHALER) IH PRN (06:13)
[2021-06-16] MEDS: PRENATAL VITAMINS W/ FOLIC ACID TABLET (FP) PO SCH (09:45)
[2021-06-16] MEDS: NICOTINE 14 MG/24 HOURS TOPICAL PATCH TD SCH (09:46)
[2021-06-16] MEDS: BACITRACIN 0.9 GM PACKET TP SCH (09:46)
[2021-06-16] MEDS: HYDROCORTISONE 1% TOPICAL OINT 30 GM TUBE TP SCH ×2 (09:46→21:52)
[2021-06-16] MEDS: THIAMINE HCL 100 MG TABLET (FP) PO SCH (21:56)
[2021-06-17] MEDS: TESTOSTERONE TD SCH (06:19)
[2021-06-17] MEDS: methaDONE HCL 40 MG DISPERSABLE TABLET PO SCH (06:20)
[2021-06-17] MEDS ORDERED: PT OWN MED DRAWER 7, Y5N ONE (09:01)
[2021-06-17] MEDS: hydrOXYzine PAMOATE 25 MG CAPSULE (FP) PO PRN (09:38)
[2021-06-17] MEDS: NICOTINE 14 MG/24 HOURS TOPICAL PATCH TD SCH (09:38)
[2021-06-17] MEDS: PRENATAL VITAMINS W/ FOLIC ACID TABLET (FP) PO SCH (09:38)
[2021-06-17] MEDS: HYDROCORTISONE 1% TOPICAL OINT 30 GM TUBE TP SCH ×2 (09:38→21:27)
[2021-06-17] MEDS: BACITRACIN 0.9 GM PACKET TP SCH (09:38)
[2021-06-17] MEDS: NICOTINE 10 MG CARTRIDGE (INHALER) IH PRN (09:39)
[2021-06-17] MEDS: THIAMINE HCL 100 MG TABLET (FP) PO SCH (21:27)
[2021-06-18] MEDS ORDERED: methaDONE HCL 10 MG TABLET PO SCH (06:00)
[2021-06-18] MEDS: NICOTINE 10 MG CARTRIDGE (INHALER) IH PRN ×2 (06:14→09:27)
[2021-06-18] MEDS: methaDONE HCL 40 MG DISPERSABLE TABLET PO SCH (06:15)
[2021-06-18] MEDS: TESTOSTERONE TD SCH (06:15)
[2021-06-18] MEDS: HYDROCORTISONE 1% TOPICAL OINT 30 GM TUBE TP SCH ×2 (09:27→23:15)
[2021-06-18] MEDS: BACITRACIN 0.9 GM PACKET TP SCH (09:27)
[2021-06-18] MEDS: hydrOXYzine PAMOATE 25 MG CAPSULE (FP) PO PRN (09:27)
[2021-06-18] MEDS: NICOTINE 14 MG/24 HOURS TOPICAL PATCH TD SCH (09:27)
[2021-06-18] MEDS: PRENATAL VITAMINS W/ FOLIC ACID TABLET (FP) PO SCH (09:27)
[2021-06-18] MEDS: THIAMINE HCL 100 MG TABLET (FP) PO SCH (23:15)
[2021-06-19] MEDS: NICOTINE 10 MG CARTRIDGE (INHALER) IH PRN ×2 (06:01→09:29)
[2021-06-19] MEDS: methaDONE HCL 40 MG DISPERSABLE TABLET PO SCH (06:01)
[2021-06-19] MEDS: TESTOSTERONE TD SCH (06:01)
[2021-06-19] MEDS: hydrOXYzine PAMOATE 25 MG CAPSULE (FP) PO PRN (06:04)
[2021-06-19] MEDS: PRENATAL VITAMINS W/ FOLIC ACID TABLET (FP) PO SCH (09:28)
[2021-06-19] MEDS: NICOTINE 14 MG/24 HOURS TOPICAL PATCH TD SCH (09:29)
[2021-06-19] MEDS: HYDROCORTISONE 1% TOPICAL OINT 30 GM TUBE TP SCH ×2 (09:29→23:53)
[2021-06-19] MEDS: BACITRACIN 0.9 GM PACKET TP SCH (09:32)
[2021-06-19] MEDS: THIAMINE HCL 100 MG TABLET (FP) PO SCH (23:54)
[2021-06-20] MEDS: TESTOSTERONE TD SCH (06:13)
[2021-06-20] MEDS: methaDONE HCL 40 MG DISPERSABLE TABLET PO SCH (06:13)
[2021-06-20] MEDS: NICOTINE 10 MG CARTRIDGE (INHALER) IH PRN (06:15)
[2021-06-20] MEDS: HYDROCORTISONE 1% TOPICAL OINT 30 GM TUBE TP SCH ×2 (09:32→21:44)
[2021-06-20] MEDS: NICOTINE 14 MG/24 HOURS TOPICAL PATCH TD SCH (09:32)
[2021-06-20] MEDS: PRENATAL VITAMINS W/ FOLIC ACID TABLET (FP) PO SCH (09:32)
[2021-06-20] MEDS: BACITRACIN 0.9 GM PACKET TP SCH (09:58)
[2021-06-20] MEDS ORDERED: PT OWN MED DRAWER 7, Y5N ONE (19:47)
[2021-06-20] MEDS: THIAMINE HCL 100 MG TABLET (FP) PO SCH (21:44)
[2021-06-21] MEDS: methaDONE HCL 40 MG DISPERSABLE TABLET PO SCH (06:15)
[2021-06-21] MEDS: TESTOSTERONE TD SCH (06:15)
[2021-06-21] MEDS: NICOTINE 10 MG CARTRIDGE (INHALER) IH PRN (06:16)
[2021-06-21] MEDS: NICOTINE 14 MG/24 HOURS TOPICAL PATCH TD SCH (09:52)
[2021-06-21] MEDS: HYDROCORTISONE 1% TOPICAL OINT 30 GM TUBE TP SCH ×2 (09:52→21:41)
[2021-06-21] MEDS: BACITRACIN 0.9 GM PACKET TP SCH (09:52)
[2021-06-21] MEDS: PRENATAL VITAMINS W/ FOLIC ACID TABLET (FP) PO SCH (09:52)
[2021-06-21] MEDS ORDERED: diphenhydrAMINE HCL 25 MG CAPSULE (FP) PO ONE (19:23)
[2021-06-21] MEDS: THIAMINE HCL 100 MG TABLET (FP) PO SCH (21:41)
[2021-06-22] MEDS: TESTOSTERONE TD SCH (06:17)
[2021-06-22] MEDS: methaDONE HCL 40 MG DISPERSABLE TABLET PO SCH (06:18)
[2021-06-22] MEDS: PRENATAL VITAMINS W/ FOLIC ACID TABLET (FP) PO SCH (09:37)
[2021-06-22] MEDS: NICOTINE 14 MG/24 HOURS TOPICAL PATCH TD SCH (09:38)
[2021-06-22] MEDS: HYDROCORTISONE 1% TOPICAL OINT 30 GM TUBE TP SCH ×2 (09:38→23:34)
[2021-06-22] MEDS: BACITRACIN 0.9 GM PACKET TP SCH (09:38)
[2021-06-22] MEDS: THIAMINE HCL 100 MG TABLET (FP) PO SCH (23:34)
[2021-06-23] MEDS ORDERED: PT OWN MED DRAWER 7, Y5N ONE (06:18)
[2021-06-23] MEDS: methaDONE HCL 40 MG DISPERSABLE TABLET PO SCH (06:19)
[2021-06-23] MEDS: TESTOSTERONE TD SCH (06:19)
[2021-06-23] MEDS: NICOTINE 10 MG CARTRIDGE (INHALER) IH PRN ×2 (06:21→12:40)
[2021-06-23] MEDS: HYDROCORTISONE 1% TOPICAL OINT 30 GM TUBE TP SCH (09:26)
[2021-06-23] MEDS: NICOTINE 14 MG/24 HOURS TOPICAL PATCH TD SCH (09:26)
[2021-06-23] MEDS: PRENATAL VITAMINS W/ FOLIC ACID TABLET (FP) PO SCH (09:26)
[2021-06-24] MEDS: NICOTINE 10 MG CARTRIDGE (INHALER) IH PRN ×2 (06:21→11:41)
[2021-06-24] MEDS: methaDONE HCL 40 MG DISPERSABLE TABLET PO SCH (06:22)
[2021-06-24] MEDS: TESTOSTERONE TD SCH (06:22)
[2021-06-24] MEDS: HYDROCORTISONE 1% TOPICAL OINT 30 GM TUBE TP SCH ×3 (09:16→22:01)
[2021-06-24] MEDS: NICOTINE 14 MG/24 HOURS TOPICAL PATCH TD SCH (09:16)
[2021-06-24] MEDS: PRENATAL VITAMINS W/ FOLIC ACID TABLET (FP) PO SCH (09:16)
[2021-06-24] MEDS: hydrOXYzine PAMOATE 25 MG CAPSULE (FP) PO PRN (10:05)
[2021-06-24] MEDS: THIAMINE HCL 100 MG TABLET (FP) PO SCH ×2 (22:01)
[2021-06-25] MEDS: TESTOSTERONE TD SCH (06:12)
[2021-06-25] MEDS: methaDONE HCL 40 MG DISPERSABLE TABLET PO SCH (06:12)
[2021-06-25] MEDS: NICOTINE 10 MG CARTRIDGE (INHALER) IH PRN ×2 (06:12→12:14)
[2021-06-25] MEDS: NICOTINE 14 MG/24 HOURS TOPICAL PATCH TD SCH (09:38)
[2021-06-25] MEDS: PRENATAL VITAMINS W/ FOLIC ACID TABLET (FP) PO SCH (09:38)
[2021-06-25] MEDS: HYDROCORTISONE 1% TOPICAL OINT 30 GM TUBE TP SCH ×2 (09:39→22:44)
[2021-06-25] MEDS: THIAMINE HCL 100 MG TABLET (FP) PO SCH (22:45)
[2021-06-26] MEDS: TESTOSTERONE TD SCH (06:15)
[2021-06-26] MEDS: methaDONE HCL 40 MG DISPERSABLE TABLET PO SCH (06:15)
[2021-06-26] MEDS: NICOTINE 10 MG CARTRIDGE (INHALER) IH PRN ×2 (06:40→10:41)
[2021-06-26] MEDS ORDERED: PT OWN MED DRAWER 7, Y5N ONE (08:53)
[2021-06-26] MEDS: HYDROCORTISONE 1% TOPICAL OINT 30 GM TUBE TP SCH ×2 (09:58→23:45)
[2021-06-26] MEDS: NICOTINE 14 MG/24 HOURS TOPICAL PATCH TD SCH (09:58)
[2021-06-26] MEDS: PRENATAL VITAMINS W/ FOLIC ACID TABLET (FP) PO SCH (09:58)
[2021-06-26] MEDS: THIAMINE HCL 100 MG TABLET (FP) PO SCH (23:45)
[2021-06-27] MEDS: TESTOSTERONE TD SCH (06:11)
[2021-06-27] MEDS: methaDONE HCL 40 MG DISPERSABLE TABLET PO SCH (06:11)
[2021-06-27] MEDS: NICOTINE 10 MG CARTRIDGE (INHALER) IH PRN (06:13)
[2021-06-27] MEDS: NICOTINE 14 MG/24 HOURS TOPICAL PATCH TD SCH (10:21)
[2021-06-27] MEDS: PRENATAL VITAMINS W/ FOLIC ACID TABLET (FP) PO SCH (10:21)
[2021-06-27] MEDS: HYDROCORTISONE 1% TOPICAL OINT 30 GM TUBE TP SCH ×2 (10:22→23:24)
[2021-06-27] MEDS: THIAMINE HCL 100 MG TABLET (FP) PO SCH (23:24)
[2021-06-28] MEDS: methaDONE HCL 40 MG DISPERSABLE TABLET PO SCH (06:14)
[2021-06-28] MEDS: TESTOSTERONE TD SCH (06:14)
[2021-06-28] MEDS: NICOTINE 10 MG CARTRIDGE (INHALER) IH PRN (06:15)
[2021-06-28] MEDS: NICOTINE 14 MG/24 HOURS TOPICAL PATCH TD SCH (09:47)
[2021-06-28] MEDS: PRENATAL VITAMINS W/ FOLIC ACID TABLET (FP) PO SCH (09:47)
[2021-06-28] MEDS: HYDROCORTISONE 1% TOPICAL OINT 30 GM TUBE TP SCH ×2 (09:47→22:20)
[2021-06-28] MEDS ORDERED: COLLOIDAL OATMEAL 1 BAR EACH TP PRN (10:32)
[2021-06-28] MEDS: THIAMINE HCL 100 MG TABLET (FP) PO SCH (22:20)
[2021-06-29] MEDS: NICOTINE 10 MG CARTRIDGE (INHALER) IH PRN ×2 (06:26→12:44)
[2021-06-29] MEDS: methaDONE HCL 40 MG DISPERSABLE TABLET PO SCH (06:26)
[2021-06-29] MEDS: TESTOSTERONE TD SCH (06:28)
[2021-06-29] MEDS: PRENATAL VITAMINS W/ FOLIC ACID TABLET (FP) PO SCH (09:37)
[2021-06-29] MEDS: NICOTINE 14 MG/24 HOURS TOPICAL PATCH TD SCH (09:48)
[2021-06-29] MEDS: HYDROCORTISONE 1% TOPICAL OINT 30 GM TUBE TP SCH ×2 (09:48→23:23)
[2021-06-29] MEDS: THIAMINE HCL 100 MG TABLET (FP) PO SCH (23:23)
[2021-06-30] MEDS: NICOTINE 10 MG CARTRIDGE (INHALER) IH PRN ×2 (06:05→10:01)
[2021-06-30] MEDS: TESTOSTERONE TD SCH (06:06)
[2021-06-30] MEDS: methaDONE HCL 40 MG DISPERSABLE TABLET PO SCH (06:06)
[2021-06-30] MEDS ORDERED: PT OWN MED DRAWER 7, Y5N ONE (09:02)
[2021-06-30] MEDS: PRENATAL VITAMINS W/ FOLIC ACID TABLET (FP) PO SCH (09:58)
[2021-06-30] MEDS: NICOTINE 14 MG/24 HOURS TOPICAL PATCH TD SCH (09:58)
[2021-06-30] MEDS: HYDROCORTISONE 1% TOPICAL OINT 30 GM TUBE TP SCH ×3 (09:58→21:29)
[2021-06-30] MEDS: hydrOXYzine PAMOATE 25 MG CAPSULE (FP) PO PRN (10:00)
[2021-06-30] MEDS: THIAMINE HCL 100 MG TABLET (FP) PO SCH (21:29)
[2021-07-01] MEDS: TESTOSTERONE TD SCH (06:10)
[2021-07-01] MEDS: methaDONE HCL 40 MG DISPERSABLE TABLET PO SCH (06:10)
[2021-07-01] MEDS ORDERED: PT OWN MED DRAWER 7, Y5N ONE (08:57)
[2021-07-01] MEDS: HYDROCORTISONE 1% TOPICAL OINT 30 GM TUBE TP SCH ×2 (10:23→21:35)
[2021-07-01] MEDS: PRENATAL VITAMINS W/ FOLIC ACID TABLET (FP) PO SCH (10:23)
[2021-07-01] MEDS: NICOTINE 14 MG/24 HOURS TOPICAL PATCH TD SCH (10:23)
[2021-07-01] MEDS: THIAMINE HCL 100 MG TABLET (FP) PO SCH (21:35)
[2021-07-02] MEDS: NICOTINE 10 MG CARTRIDGE (INHALER) IH PRN ×2 (06:17→10:30)
[2021-07-02] MEDS: TESTOSTERONE TD SCH (06:18)
[2021-07-02] MEDS: methaDONE HCL 40 MG DISPERSABLE TABLET PO SCH (06:18)
[2021-07-02] MEDS ORDERED: PT OWN MED DRAWER 7, Y5N ONE (08:29)
[2021-07-02] MEDS: PRENATAL VITAMINS W/ FOLIC ACID TABLET (FP) PO SCH (09:32)
[2021-07-02] MEDS: NICOTINE 14 MG/24 HOURS TOPICAL PATCH TD SCH (09:32)
[2021-07-02] MEDS: HYDROCORTISONE 1% TOPICAL OINT 30 GM TUBE TP SCH ×2 (09:32→23:41)
[2021-07-02] MEDS: hydrOXYzine PAMOATE 25 MG CAPSULE (FP) PO PRN (13:10)
[2021-07-02] MEDS: THIAMINE HCL 100 MG TABLET (FP) PO SCH (23:41)
[2021-07-03] MEDS: methaDONE HCL 40 MG DISPERSABLE TABLET PO SCH (06:04)
[2021-07-03] MEDS: TESTOSTERONE TD SCH (06:06)
[2021-07-03] MEDS: NICOTINE 10 MG CARTRIDGE (INHALER) IH PRN (06:08)
[2021-07-03] MEDS ORDERED: PT OWN MED DRAWER 7, Y5N ONE (06:36)
[2021-07-03 06:45] VITALS: BP 150/98; PULSE 69; TEMP 97.1
== END 2021-07-03 06:38 | disposition home or self-care (01) | DRG 772 ==
LOC: YASAS 13:07 → Y3E 13:09
PROVIDERS: ADMIT Allergy & Immunology; ATTEND Allergy & Immunology
PROC: HZ42ZZZ Group Counseling for Substance Abuse Treatment, Cognitive-Behavioral (ICD-10-PCS; principal; 2021-06-04)
DX: F10.20 Alcohol dependence, uncomplicated (principal); F11.20 Opioid dependence, uncomplicated; F14.20 Cocaine dependence, uncomplicated; F17.210 Nicotine dependence, cigarettes, uncomplicated; F19.282 Other psychoactive substance dependence with psychoactive substance-induced sleep disorder; J45.909 Unspecified asthma, uncomplicated; Z56.0 Unemployment, unspecified; Z59.01 Sheltered homelessness

== ENCOUNTER 2022-08-12 08:40 | Inpatient (IN) | payer OTHER ==
[2022-08-12 09:36] VITALS: BMI 27.2
[2022-08-12] MEDS ORDERED: POLYETHYLENE GLYCOL (HEALTHYLAX) 3350 17 GM PACKET PO PRN (09:44)
[2022-08-12] MEDS ORDERED: NALOXONE HCL (KLOXXADO) 8 MG SPRAY NS PRN (09:44)
[2022-08-12] MEDS ORDERED: ONDANSETRON *ODT* 4 MG TABLET SL PRN (09:44)
[2022-08-12] MEDS ORDERED: LOPERAMIDE HCL 2 MG CAPSULE PO PRN (09:44)
[2022-08-12] MEDS ORDERED: BISMUTH SUBSALICYLATE 524 MG/30 ML PO PRN (09:44)
[2022-08-12] MEDS ORDERED: IBUPROFEN 400 MG TABLET (FP) PO PRN (09:44)
[2022-08-12] MEDS ORDERED: MAGNESIUM HYDROX 2400MG/30ML ORAL SUSPENSION 30 ML CUP PO PRN (09:44)
[2022-08-12] MEDS ORDERED: DICYCLOMINE HCL 10 MG CAPSULE PO PRN (09:44)
[2022-08-12] MEDS ORDERED: BENZOCAINE/MENTHOL (CHLORASEPTIC ) LOZENGE MM PRN (09:44)
[2022-08-12] MEDS ORDERED: ACETAMINOPHEN 325 MG TABLET (FP) PO PRN ×2 (09:44)
[2022-08-12] MEDS ORDERED: MAG HYDROX/AL HYDROX/SIMETH 30 ML UNIT-DOSE CUP PO PRN (09:44)
[2022-08-12] MEDS ORDERED: NICOTINE POLACRILEX 2 MG GUM BUC PRN (09:50)
[2022-08-12] MEDS ORDERED: ALBUTEROL SO4 HFA INHALER IH PRN (10:35)
[2022-08-12] MEDS: PRENATAL VITAMINS W/ FOLIC ACID TABLET (FP) PO SCH (11:28)
[2022-08-12] MEDS: diazePAM 5 MG TABLET PO SCH ×3 (11:28→22:24)
[2022-08-12] MEDS: METHOCARBAMOL 500 MG TABLET PO PRN ×2 (11:28→22:27)
[2022-08-12] MEDS ORDERED: MELATONIN 5 MG TABLETS PO SCH (22:00)
[2022-08-12] MEDS: THIAMINE HCL 100 MG TABLET (FP) PO SCH (22:24)
[2022-08-13] MEDS: diazePAM 5 MG TABLET PO SCH ×3 (05:50→18:05)
[2022-08-13] MEDS ORDERED: methaDONE HCL 10 MG TABLET PO ONE (08:21)
[2022-08-13] MEDS: PRENATAL VITAMINS W/ FOLIC ACID TABLET (FP) PO SCH (09:44)
[2022-08-13] MEDS: METHOCARBAMOL 500 MG TABLET PO PRN (09:44)
[2022-08-13] MEDS ORDERED: methaDONE HCL 40 MG DISPERSABLE TABLET PO SCH (11:45)
[2022-08-13 12:07] LABS: HEMATOCRIT 47.1 % (35.4-49); HEMOGLOBIN 15.7 GM/dL (11.7-16.9); MCHC 33.4 g/dl (32.0-35.9); MEAN CELL VOLUME 92.9 fl (80-96); MEAN PLT VOLUME 7.4 fl (7.5-11.1); PLATELET COUNT 334 10^3/uL (134-434); RBC 5.07 M/mm3 (4.00-5.60); RDW 14.7 % (11.9-15.9); WHITE BLOOD COUNT 6.7 K/mm3 (4.0-10.0)
[2022-08-13 12:25] LABS: ALBUMIN 3.7 g/dl (3.4-5.0); BLOOD UREA NITROGEN 16.7 mg/dL (7-18)
[2022-08-13 12:30] LABS: BILIRUBIN,TOTAL 0.2 mg/dL (0.2-1); CREATININE 0.8 mg/dL (0.55-1.3)
[2022-08-13 12:34] LABS: TOT PROT 6.7 g/dl (6.4-8.2)
[2022-08-13] MEDS: IBUPROFEN 600 MG TABLET (FP) PO PRN (22:40)
[2022-08-13] MEDS: THIAMINE HCL 100 MG TABLET (FP) PO SCH (22:40)
[2022-08-13] MEDS: MELATONIN 5 MG TABLETS PO PRN (22:41)
[2022-08-14] MEDS: diazePAM 5 MG TABLET PO SCH ×3 (00:15→22:19)
[2022-08-14] MEDS ORDERED: methaDONE HCL 10 MG TABLET PO SCH (06:00)
[2022-08-14] MEDS ORDERED: diazePAM 5 MG TABLET PO SCH (06:00)
[2022-08-14] MEDS: PRENATAL VITAMINS W/ FOLIC ACID TABLET (FP) PO SCH (10:29)
[2022-08-14] MEDS: METHOCARBAMOL 500 MG TABLET PO PRN ×2 (10:31→22:22)
[2022-08-14] MEDS: THIAMINE HCL 100 MG TABLET (FP) PO SCH (22:18)
[2022-08-14] MEDS: MELATONIN 5 MG TABLETS PO PRN (22:19)
[2022-08-14] MEDS: IBUPROFEN 600 MG TABLET (FP) PO PRN (22:22)
[2022-08-15] MEDS: diazePAM 5 MG TABLET PO SCH ×3 (05:38→17:56)
[2022-08-15] MEDS: NICOTINE 10 MG CARTRIDGE (INHALER) IH PRN ×2 (05:41→10:24)
[2022-08-15] MEDS ORDERED: diazePAM 5 MG TABLET PO SCH (06:00)
[2022-08-15] MEDS: PRENATAL VITAMINS W/ FOLIC ACID TABLET (FP) PO SCH (10:22)
[2022-08-15] MEDS: IBUPROFEN 600 MG TABLET (FP) PO PRN (10:23)
[2022-08-15] MEDS: THIAMINE HCL 100 MG TABLET (FP) PO SCH (22:55)
[2022-08-16] MEDS: NICOTINE 10 MG CARTRIDGE (INHALER) IH PRN (05:44)
[2022-08-16] MEDS: IBUPROFEN 600 MG TABLET (FP) PO PRN (05:44)
[2022-08-16] MEDS ORDERED: diazePAM 5 MG TABLET PO ONE ×2 (06:00)
[2022-08-16 09:20] VITALS: BP 141/85; PULSE 78; RESP 17; TEMP 98
[2022-08-16] MEDS: PRENATAL VITAMINS W/ FOLIC ACID TABLET (FP) PO SCH (12:15)
== END 2022-08-16 13:23 | disposition home or self-care (01) | DRG 773 ==
LOC: YASAS 08:40 → Y6N 10:33
PROVIDERS: ADMIT Allergy & Immunology; ATTEND Surgery
PROC: HZ2ZZZZ Detoxification Services for Substance Abuse Treatment (ICD-10-PCS; principal; 2022-08-12)
DX: F10.230 Alcohol dependence with withdrawal, uncomplicated (principal); F11.20 Opioid dependence, uncomplicated; F14.20 Cocaine dependence, uncomplicated; F17.210 Nicotine dependence, cigarettes, uncomplicated; I10 Essential (primary) hypertension; Z88.2 Allergy status to sulfonamides; Z91.013 Allergy to seafood
CPT/HCPCS: 36415; 80053; 85027; 86780; 87811; C9803-CS; U0003; U0005

== ENCOUNTER 2024-02-26 19:25 | Inpatient (IN) | payer OTHER ==
[2024-02-26 20:07] VITALS: BMI 21.4
[2024-02-26] MEDS ORDERED: ALBUTEROL SO4 HFA INHALER IH PRN (20:24)
[2024-02-26] MEDS ORDERED: BENZOCAINE/MENTHOL (CHLORASEPTIC ) LOZENGE MM PRN (20:32)
[2024-02-26] MEDS ORDERED: DICYCLOMINE HCL 10 MG CAPSULE PO PRN (20:32)
[2024-02-26] MEDS ORDERED: NALOXONE HCL 0.4 MG/ML VIAL IM PRN (20:32)
[2024-02-26] MEDS ORDERED: NALOXONE (NARCAN) HCL 4 MG/0.1 ML SPRAY NS PRN (20:32)
[2024-02-26] MEDS ORDERED: BISMUTH SUBSALICYLATE 524 MG/30 ML PO PRN (20:32)
[2024-02-26] MEDS ORDERED: BENZONATATE 200 MG CAPSULE PO PRN (20:32)
[2024-02-26] MEDS ORDERED: ACETAMINOPHEN 325 MG TABLET (FP) PO PRN (20:32)
[2024-02-26] MEDS ORDERED: IBUPROFEN 600 MG TABLET (FP) PO PRN (20:32)
[2024-02-26] MEDS ORDERED: MAGNESIUM HYDROX 2400MG/30ML ORAL SUSPENSION 30 ML CUP PO PRN (20:32)
[2024-02-26] MEDS ORDERED: POLYETHYLENE GLYCOL (HEALTHYLAX) 3350 17 GM PACKET PO PRN (20:32)
[2024-02-26] MEDS ORDERED: IBUPROFEN 400 MG TABLET (FP) PO PRN (20:32)
[2024-02-26] MEDS ORDERED: NICOTINE POLACRILEX 2 MG GUM BUC PRN (20:32)
[2024-02-26] MEDS ORDERED: ONDANSETRON *ODT* 4 MG TABLET SL PRN (20:32)
[2024-02-26] MEDS ORDERED: guaiFENesin 600 MG TABLET.ER (FP) PO PRN (20:32)
[2024-02-26] MEDS ORDERED: MAG HYDROX/AL HYDROX/SIMETH 30 ML UNIT-DOSE CUP PO PRN (20:32)
[2024-02-26] MEDS ORDERED: METHOCARBAMOL 500 MG TABLET PO PRN (20:32)
[2024-02-26] MEDS ORDERED: NICOTINE POLACRILEX 2 MG LOZENGE BC PRN (20:32)
[2024-02-26] MEDS ORDERED: LOPERAMIDE HCL 2 MG CAPSULE PO PRN (20:32)
[2024-02-26] MEDS: TOLNAFTATE 1% CREAM 15 GM TUBE TP SCH (22:06)
[2024-02-26] MEDS: THIAMINE 100 MG TABLET PO SCH (22:07)
[2024-02-26] MEDS: diazePAM 5 MG TABLET PO SCH (22:08)
[2024-02-26] MEDS: MELATONIN 5 MG TABLETS PO SCH (22:10)
[2024-02-27] MEDS ORDERED: methaDONE HCL 10 MG TABLET PO SCH (09:00)
[2024-02-27] MEDS: PRENATAL VITAMINS W/ FOLIC ACID TABLET (FP) PO SCH (09:37)
[2024-02-27 15:05] LABS: HEMATOCRIT 35.7 % (35.4-49); HEMOGLOBIN 11.8 GM/dL (11.7-16.9); MCH 29.9 pg (25.7-33.7); MCHC 33.1 g/dl (32.0-35.9); MEAN CELL VOLUME 90.3 fl (80-96); MEAN PLT VOLUME 7.4 fl (7.5-11.1); PLATELET COUNT 37 10^3/uL (134-434); RBC 3.95 M/mm3 (4.00-5.60); WHITE BLOOD COUNT 3.9 K/mm3 (4.0-10.0)
[2024-02-27 15:31] LABS: POTASSIUM 4.2 mmol/L (3.5-5.1)
[2024-02-27 15:33] LABS: ALBUMIN 2.6 g/dl (3.4-5.0); BLOOD UREA NITROGEN 13.7 mg/dL (7-18); CALCIUM 8.2 mg/dL (8.5-10.1)
[2024-02-27 15:37] LABS: CREATININE 0.7 mg/dL (0.55-1.3)
[2024-02-27 15:38] LABS: BILIRUBIN,TOTAL 0.4 mg/dL (0.2-1); TOT PROT 5.5 g/dl (6.4-8.2)
[2024-02-28] MEDS: diazePAM 5 MG TABLET PO SCH (05:56)
[2024-02-29] MEDS: diazePAM 5 MG TABLET PO SCH (05:38)
[2024-02-29] MEDS: diazePAM 5 MG TABLET PO PRN (09:18)
[2024-03-01] MEDS: diazePAM 5 MG TABLET PO ONE (05:48)
[2024-03-01 09:10] VITALS: BP 110/71; PULSE 66; RESP 16; TEMP 98.6
== END 2024-03-01 11:27 | disposition home or self-care (01) | DRG 773 ==
LOC: YASAS 19:25 → Y6N 21:20
PROVIDERS: ADMIT Allergy & Immunology; ATTEND Surgery
PROC: HZ2ZZZZ Detoxification Services for Substance Abuse Treatment (ICD-10-PCS; principal; 2024-02-26)
DX: F10.230 Alcohol dependence with withdrawal, uncomplicated (principal); F11.20 Opioid dependence, uncomplicated; F14.20 Cocaine dependence, uncomplicated; F17.213 Nicotine dependence, cigarettes, with withdrawal; J45.20 Mild intermittent asthma, uncomplicated; Z88.2 Allergy status to sulfonamides; Z91.013 Allergy to seafood
CPT/HCPCS: 36415; 80053; 80305; 80307; 85027; 86780; 93005; 93010

== ENCOUNTER 2025-05-09 19:56 | Inpatient (IN) | payer OTHER ==
[2025-05-09 20:22] VITALS: BMI 22.1
[2025-05-09] MEDS ORDERED: ACETAMINOPHEN 325 MG TABLET (FP) PO PRN (20:38)
[2025-05-09] MEDS ORDERED: MAGNESIUM HYDROX 2400MG/30ML ORAL SUSPENSION 30 ML CUP PO PRN (20:38)
[2025-05-09] MEDS ORDERED: BENZONATATE 200 MG CAPSULE PO PRN (20:38)
[2025-05-09] MEDS ORDERED: NICOTINE POLACRILEX 2 MG LOZENGE BC PRN (20:38)
[2025-05-09] MEDS ORDERED: NICOTINE POLACRILEX 2 MG GUM BUC PRN (20:38)
[2025-05-09] MEDS ORDERED: BISMUTH SUBSALICYLATE 524 MG/30 ML PO PRN (20:38)
[2025-05-09] MEDS ORDERED: NALOXONE (NARCAN) HCL 4 MG/0.1 ML SPRAY NS PRN (20:38)
[2025-05-09] MEDS ORDERED: P-EPHED 60MG/TRIPROLIDI 2.5MG TABLET PO PRN (20:38)
[2025-05-09] MEDS ORDERED: BENZOCAINE/MENTHOL (CHLORASEPTIC ) LOZENGE MM PRN (20:38)
[2025-05-09] MEDS ORDERED: IBUPROFEN 400 MG TABLET (FP) PO PRN (20:38)
[2025-05-09] MEDS ORDERED: guaiFENesin 600 MG TABLET.ER (FP) PO PRN (20:38)
[2025-05-09] MEDS ORDERED: ONDANSETRON *ODT* 4 MG TABLET SL PRN (20:38)
[2025-05-09] MEDS ORDERED: POLYETHYLENE GLYCOL (HEALTHYLAX) 3350 17 GM PACKET PO PRN (20:38)
[2025-05-09] MEDS ORDERED: DICYCLOMINE HCL 10 MG CAPSULE PO PRN (20:38)
[2025-05-09] MEDS ORDERED: MAG HYDROX/AL HYDROX/SIMETH 30 ML UNIT-DOSE CUP PO PRN (20:38)
[2025-05-09] MEDS ORDERED: LOPERAMIDE HCL 2 MG CAPSULE PO PRN (20:38)
[2025-05-09] MEDS ORDERED: ALBUTEROL SO4 HFA INHALER IH PRN (22:23)
[2025-05-09] MEDS ORDERED: MELATONIN 5 MG TABLETS ONE (22:33)
[2025-05-09] MEDS: THIAMINE 100 MG TABLET PO SCH (22:37)
[2025-05-09] MEDS: MELATONIN 5 MG TABLETS PO SCH (22:37)
[2025-05-10] MEDS: PRENATAL VITAMINS W/ FOLIC ACID TABLET (FP) PO SCH (10:26)
[2025-05-10 12:11] LABS: MCHC 32.3 g/dl (32.3-36.5); MEAN CELL VOLUME 93.1 fl (79.0-92.2); MEAN PLT VOLUME 9.0 fl (9.4-12.4); RDW 13.9 % (12.1-15.9)
[2025-05-10 12:29] LABS: GLUCOSE,RANDOM 103 mg/dL (74-106); TOT PROT 5.7 g/dl (6.4-8.2)
[2025-05-10 12:30] LABS: CO2 30 mmol/L (21-32)
[2025-05-10 12:32] LABS: ALK PHOS 75 U/L (40-150)
[2025-05-10 12:34] LABS: SGPT/ALT 29 U/L (0-55)
[2025-05-10 12:35] LABS: CREATININE 0.74 mg/dL (0.55-1.3); SGOT/AST 31 U/L (5-34)
[2025-05-12] MEDS: ACAMPROSATE CALCIUM 333 MG TABLET.DR PO SCH (13:49)
[2025-05-12] MEDS: IBUPROFEN 600 MG TABLET (FP) PO PRN (22:19)
[2025-05-13] MEDS: METHOCARBAMOL 500 MG TABLET PO PRN (18:13)
[2025-05-14 08:44] VITALS: BP 123/72; PULSE 70; RESP 18; TEMP 97.8
== END 2025-05-14 10:38 | disposition home or self-care (01) | DRG 773 ==
LOC: YASAS 19:56 → Y3N 22:15
PROVIDERS: ADMIT Neuromusculoskeletal Medicine & OMM; ATTEND Allergy & Immunology
PROC: HZ2ZZZZ Detoxification Services for Substance Abuse Treatment (ICD-10-PCS; principal; 2025-05-09)
DX: F11.23 Opioid dependence with withdrawal (principal); F10.230 Alcohol dependence with withdrawal, uncomplicated; F14.20 Cocaine dependence, uncomplicated; F17.210 Nicotine dependence, cigarettes, uncomplicated; J45.909 Unspecified asthma, uncomplicated
CPT/HCPCS: 36415; 80053; 80305; 80307; 85027; 86780; 93005; 93010